=== PATIENT | male | born 1985 | race Caucasian/White ===

== ENCOUNTER 2017-10-19 12:29 | Emergency (ER) | payer SELFPAY ==
[~2017-10-19] VITALS: Ht 177.8 cm; Wt 77.3 kg
[2017-10-19 12:45] VITALS: Ht 177.8 cm; Wt 77.3 kg
[2017-10-19 13:33] LABS: BASOPHILS 0.3 % (0-2); EOSINOPHILS 1.3 % (0-7); HEMATOCRIT 42.7 % (42.0-54.0); HEMOGLOBIN 14.6 g/dL (13.5-17.5); IMMATURE GRANULOCYTES 0.1 % (0-5); LYMPHOCYTES 29.3 % (15-50); MCH 30.1 pg (26.0-34.0); MCHC 34.2 g/dL (31.0-37.0); MEAN PLATELET VOLUME 11.5 fL (7.4-10.4); MONOCYTES 6.3 % (2-11); NEUTROPHILS 62.7 % (40-80); PLATELET COUNT 215 10x3/uL (130-400); RBC 4.85 10x6/uL (4.20-6.10); RDW 12.9 % (11.5-14.5); WBC 7.1 10x3/uL (4.8-10.8)
[2017-10-19 13:46] LABS: ALBUMIN 4.5 g/dL (3.4-5.0); ALKALINE PHOSPHATASE 73 U/L (46-116); ALT (SGPT) 16 U/L (10-68); BILIRUBIN - TOTAL 0.72 mg/dL (0.2-1.3); CALC OSMOLALITY 276 mosm/kg (275-300); CALCIUM 8.7 mg/dL (8.5-10.1); CARBON DIOXIDE 28.6 mmol/L (21.0-32.0); CHLORIDE - SERUM 102 mmol/L (98-107); CREATININE - SERUM 0.7 mg/dL (0.6-1.3); GLUCOSE 102 mg/dL (74-106); POTASSIUM - SERUM 4.2 mmol/L (3.5-5.1); SODIUM 140 mmol/L (136-145); UREA NITROGEN 7 mg/dL (7-18); eGFR NON AFRICAN AMERICAN > 90 mL/min (90-120)
[2017-10-19] MEDS ORDERED: ROBAXIN500 MG PO (14:03)
[2017-10-19 14:23] VITALS: BP 145/87
== END 2017-10-19 14:28 | disposition home or self-care (01) ==
LOC: D.ER 12:29
PROVIDERS: Family Medicine
DX: R51 Headache (principal); R53.83 Other fatigue; F17.200 Nicotine dependence, unspecified, uncomplicated